=== PATIENT | female | born 1985 | race Caucasian/White ===

== ENCOUNTER 2025-07-12 00:20 | Emergency (ER) | payer OTHER ==
[~2025-07-12] VITALS: Ht 149.9 cm; Wt 81.6 kg
[2025-07-12] MEDS ORDERED: ZEPBOUND SUBCON (00:45)
[2025-07-12] MEDS ORDERED: MONT10TA33 PO (00:45)
[2025-07-12] MEDS ORDERED: ALBU6.7H9 IH (00:45)
[2025-07-12] MEDS ORDERED: BECL10.62 IH (00:45)
[2025-07-12] MEDS: KETOROLAC TROMETHAMINE 15 MG INJ IVP ONE (01:00)
[2025-07-12] MEDS: ONDANSETRON 4 MG/2 ML VIAL IV ONE (01:00)
[2025-07-12 01:03] LABS: PLATELET COUNT (AUTO) 291 K/uL (179-408); RED BLOOD CELL COUNT(AUTO) 4.52 MIL/uL (3.63-4.92); RED CELL DISTRIBUTION WIDTH 13.5 % (12.3-17.7); WHITE BLOOD COUNT (AUTO) 7.4 K/uL (3.8-11.8)
[2025-07-12 01:09] LABS: CREATININE 0.6 mg/dL (0.6-1.3); SODIUM SERUM 143.0 mmol/L (136-145); UREA NITROGEN, BLOOD 16.0 mg/dL (7-18)
[2025-07-12 01:16] LABS: ASPARTATE AMINOTRANSFERASE 105.0 U/L (15-37); TOTAL PROTEIN, SERUM 7.1 g/dL (6.4-8.2)
[2025-07-12 01:19] LABS: *BILIRUBIN,URIN 1+ (NEGATIVE); *BLOOD, URINE NEGATIVE (NEGATIVE); *CLARITY,URINE HAZY (CLEAR); *COLOR,URINE YELLOW (YELLOW); *KETONES,URINE 1+ (NEGATIVE); *PROTEIN,URINE 1+ (NEGATIVE); *UROBILINOGEN,URINE 0.2 E.U./dl (NORMAL); LEUKOCYTE ESTERASE ,URINE NEGATIVE (NEGATIVE); NITRITE, URINE NEGATIVE (NEGATIVE); UGLUCOSE NEGATIVE (NEGATIVE)
[2025-07-12 01:21] LABS: *URINE HCG, QUAL NEGATIVE (NEGATIVE)
[2025-07-12 01:32] LABS: SQUAMOUS EPITHELIAL CELL,UR MANY /HPF (NONE SEEN)
[2025-07-12 01:35] LABS: *AMPHETAMINE, URINE NEGATIVE (NEGATIVE); *BARBITURATE, URINE NEGATIVE (NEGATIVE); *BENZODIAZEPINE, URINE NEGATIVE (NEGATIVE); *CANNABINOID, URINE NEGATIVE (NEGATIVE); *COCCAINE, URINE NEGATIVE (NEGATIVE); *OPIATE, URINE NEGATIVE (NEGATIVE); *PHENCYCLIDINE SCREEN,URINE NEGATIVE (NEGATIVE); FENTANYL, URINE NEGATIVE (NEGATIVE)
[2025-07-12] MEDS ORDERED: KETOROLAC TROMETHAMINE 15 MG INJ ONE (02:00)
[2025-07-12] MEDS ORDERED: ONDANSETRON 4 MG/2 ML VIAL ONE (02:00)
[2025-07-12 04:25] VITALS: BP 142/88
[2025-07-12] MEDS ORDERED: OMEP20TA20 PO (05:19)
[2025-07-12 05:43] VITALS: BP 139/85; O2SAT 98
== END 2025-07-12 05:30 | disposition home or self-care (01) ==
LOC: ER 00:26
DX: R10.13 Epigastric pain (principal); J45.909 Unspecified asthma, uncomplicated; E28.2 Polycystic ovarian syndrome; K21.9 Gastro-esophageal reflux disease without esophagitis; Z79.51 Long term (current) use of inhaled steroids; Z79.899 Other long term (current) drug therapy
CPT/HCPCS: 99285; 74176; 96374; 76705; 96375; 80053; 84703; 83690; 85025; 87086; 36415; 80307; 81001; J1885; J2405; A4606; A4663